=== PATIENT | female | born 1955 | race Caucasian/White ===

== ENCOUNTER 2022-11-30 14:50 | Inpatient (IN) | payer MEDICARE, OTHER ==
[~2022-11-30] VITALS: Ht 170.2 cm; Wt 70.3 kg
[2022-11-30 15:30] LABS: BASOPHILS ABSOLUTE AUTO 0.06 K/mm3 (0.00-0.23); BASOPHILS PERCENT AUTO 1 % (0-2); EOSINOPHILS ABSOLUTE AUTO 0.01 K/mm3 (0.00-0.68); EOSINOPHILS PERCENT AUTO 0 % (0-6); Hematocrit 43.1 % (33.0-51.0); IMMATURE GRAN ABSOLUTE AUTO 0.01 K/mm3 (0.00-0.10); IMMATURE GRAN PERCENT AUTO 0 % (0-1); LYMPHOCYTES ABSOLUTE AUTO 1.37 K/mm3 (0.84-5.20); LYMPHOCYTES PERCENT AUTO 22 % (21-46); MONOCYTES ABSOLUTE AUTO 0.59 K/mm3 (0.16-1.47); MONOCYTES PERCENT AUTO 9 % (4-13); Mean Corpuscular HGB 35.2 pg (26.0-34.0); Mean Corpuscular HGB Conc 32.5 g/dL (31.5-36.5); Mean Corpuscular Volume 108 fL (80-100); Mean Platelet Volume 9.3 fL (9.1-12.4); NEUTROPHILS ABSOLUTE AUTO 4.21 K/mm3 (1.96-9.15); NEUTROPHILS PERCENT AUTO 67 % (41-73); Platelet Count 94 K/mm3 (150-400); RDW Coefficient Variation 13.5 % (11.7-14.2); RDW Standard Deviation 54.8 fL (35.1-46.3); Red Blood Cell Count 3.98 M/mm3 (3.80-5.20); White Blood Cell Count 6.25 K/mm3 (4.00-11.30)
[2022-11-30 15:38] LABS: Base Excess Venous -6.7 mmol/L; Bicarbonate Venous 18.9 mmol/L (24.0-30.0); PCO2 Venous 45.8 mmHg (38-42)
[2022-11-30 15:39] LABS: pH Blood Venous 7.26 (7.34-7.37)
[2022-11-30 15:43] LABS: Influenza A, PCR NEGATIVE (NEGATIVE); Influenza B, PCR NEGATIVE (NEGATIVE); Resp Syncytial Virus, PCR NEGATIVE (NEGATIVE); SARS-Cov-2 (COVID-19) PCR, MMC NEGATIVE (NEGATIVE)
[2022-11-30 15:58] LABS: Alanine Aminotransfer (ALT/SGP 54 U/L (12-78); Alk Phos 63 U/L (50-136); Anion Gap 8 mmol/L (6-16); Aspartate Aminotrans (AST/SGOT 57 U/L (12-37); Blood Urea Nitrogen 9 mg/dL (8-24); Bun/Creatinine Ratio 20.3 (12.0-20.0); CO2, Blood 21 mmol/L (21-32); Calcium, Blood 8.7 mg/dL (8.5-10.1); Chloride, Blood 104 mmol/L (98-108); Creatinine, Blood 0.44 mg/dL (0.40-1.00); Ethanol (Alcohol), Blood, Med <3 mg/dL; Globulin, Blood 3.9 g/dL (2.2-4.0); Glomerular Filtration Rate 107 (60-); Glucose, Blood 248 mg/dL (70-99); Potassium, Blood 4.7 mmol/L (3.5-5.5); Sodium, Blood 133 mmol/L (136-145); Total Protein, Blood 7.9 g/dL (6.4-8.2)
--- NOTE | 2022-11-30 21:17 | NUR ---
1800 LASIX DOSE HOSPITALIST ORDERED ADDITIONAL 40mg OF LASIX AFTER ARRIVING TO UNIT. PATIENT RECIEVED 40mg LASIX IN ER AT 1745. CALL PLACED TO RESIDENT REGARDING DOSE AND CLARIFICAITON. RESIDENT STATED TO HOLD 1800 DOSE PATIENT JUST RECIEVED IT.
[2022-11-30 21:53] LABS: Base Excess Venous 1.1 mmol/L; Bicarbonate Venous 25.1 mmol/L (24.0-30.0); PCO2 Venous 41.2 mmHg (38-42); pH Blood Venous 7.41 (7.34-7.37)
[2022-12-01 05:01] LABS: Bun/Creatinine Ratio 19.1 (12.0-20.0); Calcium, Blood 8.5 mg/dL (8.5-10.1); Creatinine, Blood 0.47 mg/dL (0.40-1.00); Magnesium, Blood 1.7 mg/dL (1.6-2.4); Potassium, Blood 3.5 mmol/L (3.5-5.5)
[2022-12-01 05:40] LABS: BASOPHILS PERCENT AUTO 0 % (0-2); EOSINOPHILS PERCENT AUTO 0 % (0-6); Hematocrit 36.5 % (33.0-51.0); Hemoglobin 12.5 g/dL (11.5-16.0); IMMATURE GRAN ABSOLUTE AUTO 0.02 K/mm3 (0.00-0.10); IMMATURE GRAN PERCENT AUTO 1 % (0-1); LYMPHOCYTES ABSOLUTE AUTO 0.27 K/mm3 (0.84-5.20); LYMPHOCYTES PERCENT AUTO 7 % (21-46); MONOCYTES PERCENT AUTO 5 % (4-13); Mean Corpuscular HGB 35.6 pg (26.0-34.0); Mean Corpuscular HGB Conc 34.2 g/dL (31.5-36.5); Mean Corpuscular Volume 104 fL (80-100); Mean Platelet Volume 9.4 fL (9.1-12.4); NEUTROPHILS ABSOLUTE AUTO 3.38 K/mm3 (1.96-9.15); NEUTROPHILS PERCENT AUTO 87 % (41-73); Platelet Count 86 K/mm3 (150-400); RDW Coefficient Variation 13.4 % (11.7-14.2); RDW Standard Deviation 50.9 fL (35.1-46.3); Red Blood Cell Count 3.51 M/mm3 (3.80-5.20); White Blood Cell Count 3.87 K/mm3 (4.00-11.30)
--- NOTE | 2022-12-01 06:25 | NUR ---
SHIFT SUMMARY PATIENT ALERT AND ORIENTED, ABLE TO MAKE NEEDS KNOWN. VSS, PATIENT ON BIPAP FOR MAJORITY OF NIGHT WHILE SLEEPING, PATIENT TOLERATING RA WHILE AWAKE WITH O2 SAT >92%. DENIES CHEST PAIN OR SOB. PATIENT STANDBY ASSIST TO BEDSIDE COMMODE WITH ADEQUATE OUTPUT. NO SIGNIFICANT CHANGES, WILL REPORT TO DAY SHIFT RN.
--- NOTE | 2022-12-01 12:00 | NUR ---
CARE ASSUMPTION This RN assumed care at 0700. patient is alert and oriented x4. patient left eye pupil is smaller than right and sluggish. patient stated she had "surgery" but doesnt remember what kind of surgery. Patient reports no pain, chest pain/pressure, or shortness of breath. patient is able to make needs known and uses call light appropritately. vital signs are stable and have remained stable. spo2 >90% on room air. tele sr. see shift assessment for further detials. Morning care has been done by patient that patient performed indepdently. Patient refused a bed bath/shower this AM. Plan of care is up to date. call light is within reach and bed is in lowest position.
--- NOTE | 2022-12-01 18:30 | NUR ---
SHIFT SUMMARY Patient neuro remains intact, and unchaged throughout the shift. patient reports no pain, chest pain/pressure or shortness of breath. vital signs remain stable, see vitals. patient is med status with tele. patient uses call light appropriately and is able to make needs known. no acute changes this shift. call light within reach and bed in lowest position. plan of care is up to date.
--- NOTE | 2022-12-01 22:11 | NUR ---
ASSUMPTION OF CARE/TRANSFER PATIENT ALERT AND ORIENTED, ABLE TO MAKE NEEDS KNOWN TO STAFF. ON RA WITH O2 SAT >90%. ALL OTHER VITALS STABLE. PATIENT AMBULATING INTO BATHROOM INDEPDENDENTLY. CALL PLACED TO MEDICAL FLOOR NURSE AND REPORT GIVEN. PATIENT TRANSFERRED TO [facility] WITH ALL BELONGINGS.
--- NOTE | 2022-12-02 01:13 | NUR ---
TRANSFER/UPDATE *LATE ENTRY* PT TRANSFER FROM PCU 6. VSS. ORIENTED TO RM 310. REPORTED UPPER ABD/MID CHEST DISCOMFORT, "LIKE ACID REFLUX" INFORMED LYNN Silvestre & HE ORDERED 40MG PEPCID BID & TO START MEDICATION THIS STACI. MEDICATED PT AND NO FURTHER REPORTS OF DISCOMFORT. CALL LIGHT IN REACH.
[2022-12-02 04:58] LABS: BASOPHILS ABSOLUTE AUTO 0.02 K/mm3 (0.00-0.23); BASOPHILS PERCENT AUTO 0 % (0-2); EOSINOPHILS ABSOLUTE AUTO 0.06 K/mm3 (0.00-0.68); EOSINOPHILS PERCENT AUTO 1 % (0-6); Hematocrit 37.5 % (33.0-51.0); Hemoglobin 12.6 g/dL (11.5-16.0); IMMATURE GRAN ABSOLUTE AUTO 0.02 K/mm3 (0.00-0.10); IMMATURE GRAN PERCENT AUTO 0 % (0-1); LYMPHOCYTES ABSOLUTE AUTO 1.39 K/mm3 (0.84-5.20); LYMPHOCYTES PERCENT AUTO 20 % (21-46); MONOCYTES ABSOLUTE AUTO 0.54 K/mm3 (0.16-1.47); MONOCYTES PERCENT AUTO 8 % (4-13); Mean Corpuscular HGB 35.2 pg (26.0-34.0); Mean Corpuscular HGB Conc 33.6 g/dL (31.5-36.5); Mean Corpuscular Volume 105 fL (80-100); Mean Platelet Volume 9.8 fL (9.1-12.4); NEUTROPHILS ABSOLUTE AUTO 4.97 K/mm3 (1.96-9.15); NEUTROPHILS PERCENT AUTO 71 % (41-73); Platelet Count 94 K/mm3 (150-400); RDW Coefficient Variation 13.5 % (11.7-14.2); RDW Standard Deviation 53.1 fL (35.1-46.3); Red Blood Cell Count 3.58 M/mm3 (3.80-5.20)
[2022-12-02 05:14] LABS: Bun/Creatinine Ratio 28.8 (12.0-20.0); Calcium, Blood 8.7 mg/dL (8.5-10.1); Creatinine, Blood 0.66 mg/dL (0.40-1.00); Potassium, Blood 3.1 mmol/L (3.5-5.5)
--- NOTE | 2022-12-02 07:21 | NUR ---
SHIFT SUMMARY AOX4. VSS. TELE NSR HR 80-90'S. REPORTS SHE ALWAYS FEELS "A LITTLE DYSPNIC" E/U RESP, SPO2 >90% ON RA, BS DIM IN BASES c FINE CRACKLES, HAS OCC COUGH. REPORTED DYSPNEA THIS AM, MEDICATED c NASAL SPRAY & BREATHING TX. REPORTED NAUSEA THIS AM, MEDICATED c ZOFRAN, NO FURTHER NAUSEA. REPORTED 10/10 SHARP CP THIS AM, INFORMED CHARGE NURSE ROSSANA VILLAVICENCIO ORDERD EKG, NO SIGNIFICANT CHANGES FROM PREVIOUS EKG. TELE SR @THIS TIME & VSS. PT UNSURE IF DISCOMFORT IS ACID REFLUX RELATED. ASSESSED CIWA UPON ARRIVING TO FLOOR & GOT 2. CALL LIGHT IN REACH, WILL MONITOR.
--- NOTE | 2022-12-02 16:58 | NUR ---
SHIFT SUMMARY- PT IS ALERT AND ORIENTED X 4. UP AT BEDSIDE FOR BREAKFAST. PT REPORTS CHEST DISCOMFORT OF 2/10 AT 1000, BUT STATES THAT IT IS NOT NEARLY PAINFUL HER CHEST PAIN IN THE EARLY HOURS. INDEPENDENT IN THE ROOM. COURSE IN THE UPPER AND LOWER LOBES WITH EXPIRATORY WHEEZING. PT REPORTS NOT BEING ABLE TO SLEEP FOR PAST 2 NIGHTS. 13 BEAT RUN OF MD JOAO NOTIFIED. PT REPORTS 0/10 PAIN AT 1500
--- NOTE | 2022-12-03 04:10 | NUR ---
SHIFT SUMMARY ADMITTED FOR CHF (NEW)/RESPIRATORY FAILURE. FULL CODE. WE ARE DIURESING HER. WE ARE MONITORING LABS, MAY DC IF STABLE. TELEMETRY: NSR @ 88 BPM. FOLIC AND THIAMINE PIGGYBACK IV'S INFUSED. HX OF ETOH. CIWA OF 9, TREMORS NOTED. LIBRIUM GIVEN. SHE DID REQUEST RT TX AND ALBUTEROL FOR SOB, SHE STATES SHE HAS HX OF ASTHMA. SHE SEEMED ANXIOUS AT TIMES. SHE DID SEEM TO REST COMFORTABLY FOLLOWING LIBRIUM. HER LAST DRINK WAS November. SHE IS INDEPENDENT IN ROOM. A&O X3-4. BRIGHT LIGHT BOTHERS HER EYES.
[2022-12-03 05:15] LABS: BASOPHILS ABSOLUTE AUTO 0.04 K/mm3 (0.00-0.23); BASOPHILS PERCENT AUTO 1 % (0-2); EOSINOPHILS PERCENT AUTO 3 % (0-6); Hematocrit 38.8 % (33.0-51.0); Hemoglobin 12.8 g/dL (11.5-16.0); IMMATURE GRAN ABSOLUTE AUTO 0.01 K/mm3 (0.00-0.10); IMMATURE GRAN PERCENT AUTO 0 % (0-1); LYMPHOCYTES ABSOLUTE AUTO 1.28 K/mm3 (0.84-5.20); LYMPHOCYTES PERCENT AUTO 32 % (21-46); MONOCYTES ABSOLUTE AUTO 0.62 K/mm3 (0.16-1.47); MONOCYTES PERCENT AUTO 15 % (4-13); Mean Corpuscular HGB 34.9 pg (26.0-34.0); Mean Corpuscular Volume 106 fL (80-100); Mean Platelet Volume 9.5 fL (9.1-12.4); NEUTROPHILS ABSOLUTE AUTO 1.99 K/mm3 (1.96-9.15); NEUTROPHILS PERCENT AUTO 49 % (41-73); Platelet Count 104 K/mm3 (150-400); RDW Coefficient Variation 13.4 % (11.7-14.2); RDW Standard Deviation 53.2 fL (35.1-46.3); Red Blood Cell Count 3.67 M/mm3 (3.80-5.20); White Blood Cell Count 4.04 K/mm3 (4.00-11.30)
[2022-12-03 06:26] LABS: Albumin, Blood 3.4 g/dL (3.4-5.0); Bilirubin, Total 0.6 mg/dL (0.1-1.0); Bun/Creatinine Ratio 28.2 (12.0-20.0); Calcium, Blood 8.9 mg/dL (8.5-10.1); Creatinine, Blood 0.64 mg/dL (0.40-1.00); Globulin, Blood 3.4 g/dL (2.2-4.0); Potassium, Blood 3.5 mmol/L (3.5-5.5); Total Protein, Blood 6.8 g/dL (6.4-8.2)
[2022-12-03] MEDS ORDERED: CLOP75 PO (11:36)
[2022-12-03] MEDS ORDERED: ALBU90OI INH (11:36)
[2022-12-03] MEDS ORDERED: FAMO40 PO (11:37)
[2022-12-03] MEDS ORDERED: JARDIANCE10 MG PO (11:37)
[2022-12-03] MEDS ORDERED: FURO40 PO (11:38)
[2022-12-03] MEDS ORDERED: IPRAT-ALBUT 0.5-3 ML INH (11:38)
[2022-12-03] MEDS ORDERED: Flonase 0.05% N16 GM (11:38)
[2022-12-03] MEDS ORDERED: MELA3 PO (11:39)
[2022-12-03] MEDS ORDERED: METO25ER PO (11:39)
[2022-12-03] MEDS ORDERED: ALBU2.5V5 INH (11:40)
--- NOTE | 2022-12-03 15:03 | NUR ---
DISCHARGE NOTE PT DISCHARGED TO HOME, PICKED UP BY HER ROOM MATE. DISCHARGE EDUCATION AND INFORMATION PROVIDED. IV REMOVED SUCCESSFULLY. TELE REMOVED AND SENT BACK. MEDICATIONS FAXED TO THE PHARMACY OF HER CHOICE.
== END 2022-12-03 14:20 | disposition home or self-care (01) | DRG 291 ==
LOC: ER 14:50 → MEDS 18:27 → PCU 18:27 → MEDS 12-01 21:34
PROVIDERS: Family Medicine; Nurse Practitioner Acute Care; Physician Assistant; ADMIT Internal Medicine
PROC: 5A09357 Assistance with Respiratory Ventilation, Less than 24 Consecutive Hours, Continuous Positive Airway Pressure (ICD-10-PCS; principal; 2022-11-30)
DX: I50.43 Acute on chronic combined systolic (congestive) and diastolic (congestive) heart failure (principal); J96.01 Acute respiratory failure with hypoxia; E87.1 Hypo-osmolality and hyponatremia; E87.20 Acidosis, unspecified; F10.20 Alcohol dependence, uncomplicated; J44.9 Chronic obstructive pulmonary disease, unspecified; I25.10 Atherosclerotic heart disease of native coronary artery without angina pectoris; E87.6 Hypokalemia; H10.029 Other mucopurulent conjunctivitis, unspecified eye; D69.6 Thrombocytopenia, unspecified; Z20.822 Contact with and (suspected) exposure to COVID-19; F17.210 Nicotine dependence, cigarettes, uncomplicated; Z95.5 Presence of coronary angioplasty implant and graft; I25.2 Old myocardial infarction; Z71.6 Tobacco abuse counseling; Z91.148 Patient's other noncompliance with medication regimen for other reason; Z88.8 Allergy status to other drugs, medicaments and biological substances; Z88.5 Allergy status to narcotic agent; Z79.02 Long term (current) use of antithrombotics/antiplatelets; Z79.899 Other long term (current) drug therapy; Z71.41 Alcohol abuse counseling and surveillance of alcoholic
CPT/HCPCS: 0241U; 36415; 71046; 80048; 80053; 82803; 83735; 83880; 84443; 84484; 85025; 93005; 93010; 93306; 94640; 94644; 94660; 94664; 94760; 94762; 96374; 96375; 99285-25; A9270; G0480; J1650; J1940; J2060; J2405; J2930; J3411; J7050

== ENCOUNTER 2023-05-30 12:47 | Inpatient (IN) | payer MEDICARE, OTHER ==
[~2023-05-30] VITALS: Ht 157.5 cm; Wt 63.9 kg
[~2023-05-30 12:47] MED LIST: ALBU2.5V5 INH; ALBU90OI INH; CLOP75 PO; FAMO40 PO; FURO40 PO; Flonase 0.05% N16 GM; IPRAT-ALBUT 0.5-3 ML INH; JARDIANCE10 MG PO; MELA3 PO; METO25ER PO
[2023-05-30 13:46] LABS: BASOPHILS ABSOLUTE AUTO 0.07 K/mm3 (0.00-0.23); BASOPHILS PERCENT AUTO 1 % (0-2); EOSINOPHILS ABSOLUTE AUTO 0.05 K/mm3 (0.00-0.68); EOSINOPHILS PERCENT AUTO 1 % (0-6); Hematocrit 42.5 % (33.0-51.0); Hemoglobin 14.1 g/dL (11.5-16.0); IMMATURE GRAN ABSOLUTE AUTO 0.08 K/mm3 (0.00-0.10); IMMATURE GRAN PERCENT AUTO 2 % (0-1); LYMPHOCYTES ABSOLUTE AUTO 1.24 K/mm3 (0.84-5.20); LYMPHOCYTES PERCENT AUTO 25 % (21-46); MONOCYTES PERCENT AUTO 12 % (4-13); Mean Corpuscular HGB 35.3 pg (26.0-34.0); Mean Corpuscular HGB Conc 33.2 g/dL (31.5-36.5); Mean Corpuscular Volume 106 fL (80-100); NEUTROPHILS ABSOLUTE AUTO 3.03 K/mm3 (1.96-9.15); NEUTROPHILS PERCENT AUTO 60 % (41-73); NRBC ABSOLUTE 0.02 K/mm3 (0.00-0.02); NRBC Auto 0.4 /100 WBC (0.0-0.2); Platelet Count 110 K/mm3 (150-400); RDW Coefficient Variation 13.8 % (11.7-14.2); RDW Standard Deviation 54.5 fL (35.1-46.3); White Blood Cell Count 5.07 K/mm3 (4.00-11.30)
[2023-05-30 14:06] LABS: Albumin, Blood 3.5 g/dL (3.4-5.0); Albumin/Globulin Ratio 0.9 (0.8-1.8); Bilirubin, Total 0.7 mg/dL (0.1-1.0); Calcium, Blood 9.3 mg/dL (8.5-10.1); Creatinine, Blood 0.5 mg/dL (0.40-1.00); Globulin, Blood 4.1 g/dL (2.2-4.0); Potassium, Blood 3.8 mmol/L (3.5-5.5); Total Protein, Blood 7.6 g/dL (6.4-8.2)
[2023-05-30 16:35] VITALS: BP 134/95
--- NOTE | 2023-05-30 19:10 | NUR ---
ADMIT NOTE NEW ADMIT TO UNIT FROM ER FOR CP, NSTEMI. ALERT, ORIENTED, PLEASANT, COOPERATIVE. SBA TO TRANSFER FROM RNEY TO BED. 4-6L VIA NC TO KEEP SATS ABOVE 92%. DESATS WITH EXERTION AND EATING INTO HIGH 80'S. TELE SR-ST WITH PVC'S. OTHER VSS. LS COARSE THROUGHOUT WITH DIM BASES. TOLERATED CARDIAC DIET AND LIQUIDS. VOIDING WELL. PLAN FOR NPO AFTER MIDNIGHT FOR STRESS TEST IN AM. REPORT GIVEN TO COAL YARD SUPERVISOR RN.
--- NOTE | 2023-05-31 01:53 | NUR ---
SHIFT SUMMARY: OVERALL PATIENT HAS BEEN A/O X 3-4 HOWEVER, DID PULL OUT OWN IV ON ACCIDENT. DID NOT ORIGINALLY TELL RN WHEN ASKED ABOUT CHEST PAIN THAT SHE HAD BEEN EXPERIENCING CHEST PAIN FROM LEFT TO RIGHT CHEST AND RADIATING INTO BOTH SHOULDERS. PATIENT ALSO ON 6L VIA NC TO MAINTAIN >92%. SHE OFTEN IS FORGETFUL AND LEAVES IT OUTSIDE OF HER NARES, WHERE SHE DESATURATES. PATIENT NEEDED AN ADDITIONAL DOSE OF NITRO ~2109, PATCH REMOVED AT 2199. VITALS HAVE BEEN SLIGHTLY HYPERTENSIVE WHEN AWAKE, DURING REST UNDER 140 SYS, MOST OF THE TIME. PATIENT HAS BEEN COOPERATIVE WITH CARE, EXTREMELY BIG PINE RESERVATION. NEEDS REDIRECTION SOME OF THE TIME. BED ALARM ON FOR SAFETY AND SCD'S IN PLACE. NPO SINCE 0000, FOR STRESS TEST. NO MORPHINE, NITRO SINCE 2199 OR CCB FROM THIS RN AT THIS TIME. DENIES CHEST PAIN CURRENTLY, IMPROVED WITH TYLENOL MORE THAN THE NITRO.
[2023-05-31 04:22] LABS: Anion Gap 7 mmol/L (6-16); Blood Urea Nitrogen 9 mg/dL (8-24); Bun/Creatinine Ratio 17.2 (12.0-20.0); CHOL/HDL RATIO 3.9; CO2, Blood 22 mmol/L (21-32); Calcium, Blood 8.5 mg/dL (8.5-10.1); Chloride, Blood 109 mmol/L (98-108); Cholesterol 135 mg/dL (50-200); Creatinine, Blood 0.52 mg/dL (0.40-1.00); Glomerular Filtration Rate 102 (60-); Glucose, Blood 88 mg/dL (70-99); HDL Cholesterol 35 mg/dL (>39); LDL/HDL RATIO 2.1; Low Density Lipoprotein Chol 73 mg/dL (0-110); Potassium, Blood 3.9 mmol/L (3.5-5.5); Sodium, Blood 138 mmol/L (136-145); Triglycerides 134 mg/dL (30-160); Very Low Density Lipoprot Chol 26 mg/dL (6-32)
[2023-05-31 07:37] VITALS: BP 130/85
[2023-05-31 10:33] LABS: Adenovirus Not Detected (NOT DETECT); Bordetella pertussis Not Detected (NOT DETECT); Chlamydophila pneumoniae Not Detected (NOT DETECT); Coronavirus 229E Not Detected (NOT DETECT); Coronavirus HKU1 Not Detected (NOT DETECT); Coronavirus NL63 Not Detected (NOT DETECT); Coronavirus OC43 Not Detected (NOT DETECT); Human Metapneumovirus Not Detected (NOT DETECT); Human Rhinovirus/Enterovirus Not Detected (NOT DETECT); Influenza A/2009-H1 Not Detected (NOT DETECT); Influenza A/H1 Not Detected (NOT DETECT); Influenza A/H3 Not Detected (NOT DETECT); Influenza B Not Detected (NOT DETECT); Mycoplasma pneumoniae Not Detected (NOT DETECT); Parainfluenza Virus 1 Not Detected (NOT DETECT); Parainfluenza Virus 2 Not Detected (NOT DETECT); Parainfluenza Virus 3 Not Detected (NOT DETECT); Parainfluenza Virus 4 Not Detected (NOT DETECT); Respiratory Syncytial Virus Not Detected (NOT DETECT); SARS-Cov-2 (COVID-19), BioFire Not Detected (NOT DETECT)
[2023-05-31 12:12] VITALS: BP 116/78
[2023-05-31 15:00] VITALS: BP 100/54
--- NOTE | 2023-05-31 15:55 | NUR ---
SHIFT SUMMARY PT REMAINS ALERT AND ORIENTED, WITH SOME FORGETFULLNESS AT TIMES. BP STABLE. HR REMAINS NSR. PT DID HAVE A RUN OF VTACH, BUT WAS ASYMPTOMATIC. PT HAS BEEN ON 5L OXYMASK ALL SHIFT AND DOES DESATURATE QUICKLY WHEN TAKING OFF MASK. PT TAKES MINUTES TO RECOVER. LS DIMINISHED THROUGHOUT. PT COMPLAINS OF CHEST PRESSURE AT TIMES THAT IS AROUND A 3/10. PT ABLE TO TRANSFER TO BS WITH 1 ASSIST TO VOID. SECOND PORTION OF STRESS TEST DONE THIS AFTERNOON. REPORT GIVEN TO THOMAS SHAW TO ASSUME CARE
[2023-05-31 20:14] VITALS: BP 114/78
[2023-05-31 21:27] VITALS: BP 111/78
[2023-05-31 23:17] VITALS: BP 109/73
--- NOTE | 2023-05-31 23:50 | NUR ---
ASSUMPTION OF CARE ASSUMED CARE AT APPROX 1900. PT AOX4, CAN BE FORGETFUL AT TIMES. PT IS PLEASANT, COOPERATIVE W/ CARE. ABLE TO COMMUNICATE NEEDS PRN. VSS. BP STABLE. TELEMETRY SHOWING SR/STACH 90'S-100'S. AT 2124, THIS RN NOTIFIED THAT THE PT EXPERIENCED AN 7 BEAT EPISODE OF VTACH. PT ASYMPTOMATIC OF EPISODE, WAS SLEEPING AT THE TIME. VSS. DID REPORT 3/10 CHEST PAIN RADIATING TO L ARM. MD MADE AWARE DURING UNIT ROUNDING. CONTINUING TO MONITOR. MAGNESIUM LEVEL TO BE ADDED TO TOMORROW MORNING LAB DRAWS. PT CURRENTLY ON 4-6L VIA MASK, WAS ON 6-9L PRIOR TO ASSUMPTION OF CARE, SATS >90%. DESATS QUICKLY W/ ACTIVITY, SATS IN THE 70'S. ABLE TO RETURN W/ REST. DYSPNEA W/ EXERTION. PT REPORTS GENERALIZED "ALL OVER" PAIN, MANAGING PER EMAR. NEW IV INSERTED THIS SHIFT. CALL LIGHT IN REACH.
[2023-06-01 02:42] VITALS: BP 126/87
[2023-06-01 03:54] LABS: BASOPHILS ABSOLUTE AUTO 0.06 K/mm3 (0.00-0.23); BASOPHILS PERCENT AUTO 1 % (0-2); EOSINOPHILS ABSOLUTE AUTO 0.08 K/mm3 (0.00-0.68); EOSINOPHILS PERCENT AUTO 2 % (0-6); Hematocrit 37.2 % (33.0-51.0); Hemoglobin 12.6 g/dL (11.5-16.0); IMMATURE GRAN PERCENT AUTO 2 % (0-1); LYMPHOCYTES ABSOLUTE AUTO 1.28 K/mm3 (0.84-5.20); LYMPHOCYTES PERCENT AUTO 25 % (21-46); MONOCYTES ABSOLUTE AUTO 0.58 K/mm3 (0.16-1.47); MONOCYTES PERCENT AUTO 11 % (4-13); Mean Corpuscular HGB 35.5 pg (26.0-34.0); Mean Corpuscular HGB Conc 33.9 g/dL (31.5-36.5); Mean Corpuscular Volume 105 fL (80-100); Mean Platelet Volume 10.4 fL (9.1-12.4); NEUTROPHILS ABSOLUTE AUTO 3.06 K/mm3 (1.96-9.15); NEUTROPHILS PERCENT AUTO 59 % (41-73); Platelet Count 104 K/mm3 (150-400); RDW Coefficient Variation 13.9 % (11.7-14.2); RDW Standard Deviation 53.4 fL (35.1-46.3); Red Blood Cell Count 3.55 M/mm3 (3.80-5.20); White Blood Cell Count 5.16 K/mm3 (4.00-11.30)
[2023-06-01 04:11] LABS: Bun/Creatinine Ratio 21.7 (12.0-20.0); Calcium, Blood 8.9 mg/dL (8.5-10.1); Creatinine, Blood 0.55 mg/dL (0.40-1.00); Magnesium, Blood 1.5 mg/dL (1.6-2.4); Potassium, Blood 3.5 mmol/L (3.5-5.5)
--- NOTE | 2023-06-01 04:18 | NUR ---
SHIFT SUMMARY NO ACUTE CHANGES SINCE ASSUMPTION OF CARE. PT HAS BEEN AOX3-4 W/ SOME FORGETFULNESS AT TIMES. PT IS A POOR HISTORIAN. BP STABLE. TELEMETRY STILL SHOWING NSR. NO FURTHER RUNS OF VTACH. PT REPORTING 3/10 CHEST PAIN AND PRESSURE INFREQUENTLY. PT CURRENTLY ON 6L VIA OXYMASK. DESATS QUICKLY WHEN TAKING OFF MASK OR W/ MOBILITY. AT TIMES, PT REQUIRES REMINDING TO PUT OXYMASK BACK ON. PT REPORTING GENERALIZED "ALL OVER" PAIN THROUGHOUT SHIFT, MANAGING PER EMAR. PT UP OUT OF BED 1P ASSIST. VOIDING. BM THIS SHIFT. PT IS CURRENTLY RESTING IN ROOM, NO SIGNS OF DISTRESS NOTED. CALL LIGHT IN REACH. WILL REPORT TO ONCOMING RN.
[2023-06-01 07:48] VITALS: BP 116/63
[2023-06-01 12:01] VITALS: BP 116/79
[2023-06-01 16:24] VITALS: BP 102/69
--- NOTE | 2023-06-01 17:56 | NUR ---
SHIFT SUMMARY; ASSUMED CARE AT 0700, A/A/OX3 WITH AT TIMES SLIGHTLY FORGETFUL. 11L 02 HIGH FLOW WHEN EATING, O2 MASK AT 11L WHEN NOT EATING. PROVIDER DISCUSSED WITH RT TITRATING 02 DOWN TODAY, DESATS TO LOW 80'S WITH EXERTION. UP TO BEDSIDE COMMODE WITH ASSISTANCE. MEDICATED PER ORDERS T/O SHIFT, NO ACUTE CHANGES, WILL CONTINUE TO MONITOR AND TREAT UNTIL CHANGE OF SHIFT.
[2023-06-01 20:53] VITALS: BP 120/88
[2023-06-01 23:34] VITALS: BP 132/79
[2023-06-02 04:06] LABS: BASOPHILS ABSOLUTE AUTO 0.05 K/mm3 (0.00-0.23); BASOPHILS PERCENT AUTO 1 % (0-2); EOSINOPHILS ABSOLUTE AUTO 0.09 K/mm3 (0.00-0.68); EOSINOPHILS PERCENT AUTO 2 % (0-6); Hematocrit 37.5 % (33.0-51.0); Hemoglobin 12.5 g/dL (11.5-16.0); IMMATURE GRAN ABSOLUTE AUTO 0.11 K/mm3 (0.00-0.10); IMMATURE GRAN PERCENT AUTO 2 % (0-1); LYMPHOCYTES ABSOLUTE AUTO 1.12 K/mm3 (0.84-5.20); LYMPHOCYTES PERCENT AUTO 20 % (21-46); MONOCYTES ABSOLUTE AUTO 0.55 K/mm3 (0.16-1.47); MONOCYTES PERCENT AUTO 10 % (4-13); Mean Corpuscular HGB 35.3 pg (26.0-34.0); Mean Corpuscular HGB Conc 33.3 g/dL (31.5-36.5); Mean Corpuscular Volume 106 fL (80-100); Mean Platelet Volume 10.6 fL (9.1-12.4); NEUTROPHILS ABSOLUTE AUTO 3.62 K/mm3 (1.96-9.15); NEUTROPHILS PERCENT AUTO 65 % (41-73); Platelet Count 105 K/mm3 (150-400); RDW Coefficient Variation 14.1 % (11.7-14.2); RDW Standard Deviation 54.8 fL (35.1-46.3); Red Blood Cell Count 3.54 M/mm3 (3.80-5.20); White Blood Cell Count 5.54 K/mm3 (4.00-11.30)
[2023-06-02 04:08] VITALS: BP 102/68
[2023-06-02 04:46] LABS: Bun/Creatinine Ratio 24.3 (12.0-20.0); Calcium, Blood 9.2 mg/dL (8.5-10.1); Creatinine, Blood 0.49 mg/dL (0.40-1.00); Potassium, Blood 4.3 mmol/L (3.5-5.5)
--- NOTE | 2023-06-02 07:14 | NUR ---
SHIFT SUMMARY A/Ox3-4 AND COOPERATIVE WITH CARE. ANSWERS QUESTIONS APPROPRIATELY AND ABLE TO MAKE HER NEEDS KNOWN. NO ACUTE EVENTS OVERNIGHT FOR PT WAS ABLE TO SLEEP T/O MOST OF THE SHIFT. CARDIAC, REMAINS IN SR-ST 90-100'S WITH NO C/O CP OR PRESSURE T/O THE NIGHT. SBP HAS BEEN STABLE RANGING 100-130'S. RESPIRATORY, MAINTAINS SPO2 RANGING 88-93% ON 10-11L VIA O2 MASK. CONTINUES TO QUICKLY DESAT INTO THE MID 80'S WITH AMBULATION AND TAKES 1-2 MINUTES TO RECOVER. NOTED TO FREQUENTLY TAKE OF O2 MASK AND NEEDED TO BE REMINDED TO KEEP O2 ON. /, ABLE TO AMBULATE TO BSC WITH 1 STAFF ASSIST. VOIDING ONEL COLORED URINE. NO BM FOR THIS SHIFT. ASSESSED PT FOR RISKS OF ANY IGNITION SOURCES WELL BEHAVIORS FOR INCREASED RISKS OF FIRE DANGER. PT EDUCATED ON COMMON SOURCES OF IGNITION WELL NEED TO KEEP A SAFE ENVIRONMENT. PT VOICED UNDERSTANDING. NO NEW ORDERS AT THIS TIME, WILL REPORT TO ONCOMING RN. ZECHARIAH ZAFAR OF THIS NOTE.
[2023-06-02 07:43] VITALS: BP 113/93
[2023-06-02 11:28] VITALS: BP 92/71
--- NOTE | 2023-06-02 13:34 | NUR ---
Upon receiving a referral for spiritual care, I visited the patient. She is sitting on a chair and alert, though slightly confused. She is clear that she is in the hospital and that she has several issues but is not clear on what they are or the exact plan of care. She has two dtr's but they are in [place] and [place] and Varun (an old friend) locally how helps her sometimes. She welcomes prayer and so I gladly suppy prayer. Patient showed signs of being encouraged by the conversation and invites me to come back again. I will continue to remain available.
[2023-06-02 16:17] LABS: Base Excess Venous 3.8 mmol/L; Bicarbonate Venous 25.3 mmol/L (24.0-30.0); PCO2 Venous 48.7 mmHg (38-42); pH Blood Venous 7.38 (7.34-7.37)
[2023-06-02 16:42] VITALS: BP 119/78
--- NOTE | 2023-06-02 18:15 | NUR ---
SHIFT SUMMARY; ASSUMED CARE AT 0700. A/A/OX2. 11L 02 VIA MASK ON ARRIVAL. DESATS QUICKLY WITH MOVEMENT TO LOW 80'S HIGH 70'S. RECOVERS TO LOW 90'S IN APPROX 5 MINS. APPEARS CONFUSED AT TIMES AND DIFFICULT TO DIRECT. APPEARS MORE CONFUSED FROM PREVIOUS DAY. TELEPHONE CALL TO DR. GAONA TO DISCUSS. ADDITIONAL MEDS ORDERED, CHEST XRAY COMPLETE, CARDIAC CONSULT TODAY COMPLETED. RT TO ROOM MULTIPLE TIMES FOR BREATHING TREATMENTS. PT PULLING 02 CANNULA OFF FREQUENTLY DURING SHIFT, REDIRECTED TO LEAVE ON. 02 DEMANDS INCREASED IN LATE AFTERNOON. VBG COMPLETED, STARTED ON AIRVO PER ORDERS BY RT 35% FIO2 70L TO MAINTAIN SATS OF LOW 90'S. INCREASINGLY CONFUSED DAY PROGRESSED. REPEATS QUESTIONS, ASKS TO TAKE OXYGEN OFF, BUT IS ABLE TO REDIRECT. WILL CONTINUE TO MONITOR AND TREAT UNTIL CHANGE OF SHIFT.
[2023-06-02 20:02] VITALS: BP 133/82
[2023-06-02 23:37] VITALS: BP 115/77
[2023-06-03] VITALS (13 sets, daily range): BP systolic 105–131; BP diastolic 76–99
--- NOTE | 2023-06-03 06:45 | NUR ---
SHIFT SUMMARY A/Ox2-4 AND MOSTLY COOPERATIVE WITH CARE. CONTINUES TO DEMONSTRATE INTERMITTENT CONFUSION WELL IMPULSIVENESS. PT FREQUENTLY WOULD ATTEMPT TO PULL OFF ARIVO WELL PULL AT NECESSARY CORDS/IV'S. 1:1 SITTER UTILIZED T/O THE NIGHT TO HELP PROMOTE PT SAFETY. CARDIAC, REMAINS IN SR-ST RANGING 90-100 S WITH NO COMPLAINTS OF CP OR PRESSURE T/O THE NIGHT. SBP HAS BEEN STABLE AVERAGING 110-130'S. RESPIRATORY, MAINTAINS SPO2 88-92% ON AIRVO 30L W/ 75% FiO2. DENIES SOB WHILE AT REST. DYSPNEA NOTED WITH MINIMAL EXERTION FOR PT QUICKLY DESATS IN THE MID 80'S. OFTEN TAKES 2-3 MINUTES TO RECOVER. GI/, PURWICK IN PLACE DRAINING ONEL-YELLOW COLORED URINE TO SUCTION. NO BM FOR THIS SHIFT. PT CONTINUES TO ENDORSE GENERAL FATIGUE WITH INCREASED O2 DEMAND WITH AMBULATION. FAMILY CALLED AND UPDATED ON PT'S CONDITION. ASSESSED PT FOR RISKS OF ANY IGNITION SOURCES WELL BEHAVIORS FOR INCREASED RISKS OF FIRE DANGER. PT EDUCATED ON COMMON SOURCES OF IGNITION WELL NEED TO KEEP A SAFE ENVIRONMENT. PT VOICED UNDERSTANDING. NO NEW ORDERS AT THIS TIME, WILL REPORT TO ONCOMING RN. ZECHARIAH ZAFAR OF THIS NOTE.
[2023-06-03 14:54] LABS: Bun/Creatinine Ratio 20.9 (12.0-20.0); Calcium, Blood 9.2 mg/dL (8.5-10.1); Creatinine, Blood 0.72 mg/dL (0.40-1.00); Potassium, Blood 3.9 mmol/L (3.5-5.5)
--- NOTE | 2023-06-03 15:26 | NUR ---
SHIFT SUMMARY; ASSUMED CARE AT 0700. AIRVO WORN T/O NOC AND SITTER AT BEDSIDE. WHEN AWOKEN APPEARS CONFUSED BUT IS ABLE TO ANSWER BASIC QUESTIONS. L/S DIM T/O. MOVES AROUND ON GURNEY FREQUENTLY AND UNABLE TO HOLD STILL. REDIRECTED CONTINUOUSLY BY SITTER. DR. BROWN IN FOR CONSULT. 02 INCREASED TO 85% FIO2 50L. SATS IN LOW 90'S. INCREASINGLY ADJITATED IN AFTERNOON, REPEATING QUESTIONS AND DIFFICULTY TO DIRECT. STATES CANNOT BREATH MULTIPLE TIMES, SATS REMAINED IN LOW 90'S. RT TO ROOM, FIO2 INCREASED TO 90%. ORDERS TO MOVE TO ICU, REPORT GIVEN TO RAKESH RN, TAKEN TO ICU ON AIRVO WITH RT AND DOUGH BRAKE MACHINE OPERATOR.
--- NOTE | 2023-06-03 16:21 | NUR ---
ASSUMPTION OF CARE PT TX FROM PCU TO ICU @ 1515, MOVED TO ICU BED VIA SLIDER SHEET. PT A&OX3, FOLLOWING COMMANDS, JONES. HAVE NOT INITIATED PRECEDEX YET, PT CALM CURRENTLY. INITIALLY ON HIFLOW NC, TRANSITIONED TO BIPAP-SETTINGS NOW: 07/08-90% c SATS >92%, LS DIM T/O. ST ON THE BILINGUAL LOAN PROCESSOR. BP WNL. PHYSICIANS IN ROOM CURRENTLY, WILL MONITOR CLOSELY.
--- NOTE | 2023-06-03 18:06 | NUR ---
PT TX TO MEDICAL ROOM 339.
--- NOTE | 2023-06-03 18:34 | NUR ---
SHIFT SUMMARY PT REMAINS A&OX3, FOLLOWING COMMANDS, COOPERATING WITH CARE. TOLERATING BIPAP AT THIS TIME, HAVE NOT STARTED PRECEDEX. BIPAP SETTINGS NOW-07/08 @ 60% c SATS >90%. PT USING BEDPAN, NO BM. NO OTHER ACUTE CHANGES.
--- NOTE | 2023-06-03 20:41 | NUR ---
ASSUMED CARE PT IS A&O X4; SLOW/SLURRED SPEECH; COMMUNICATES APPROPRIATELY. SPO2 >92% ON RA; MAP >65; NSR. PT WAS MOVED FROM CHAIR TO BED AT START OF SHIFT. SON AT BEDSIDE. PERRLA; EQUAL SERVICE SECRETARY STRENGTH BILATERALLY. LEFT LEG SHOWS REDNESS SLIGHTLY OUTSIDE OF DEMARCATED LINE (2-3CM)(REDRAWN W/ SHARPIE AROUND NEW REDNESS). PT DENIES CP, SOB, OR NAUSEA. RESTING QUIETLY WATCHING TV AT THIS TIME.
--- NOTE | 2023-06-03 20:48 | NUR ---
ASSUMED CARE PT IS A&O X2; WHEN ASKED WHERE SHE WAS PT STATED "[facility]". WHEN REMINDING PT SHE WAS IN THE HOSPITAL, PT STATED "OH YEA, NENA, I KNEW THAT.". PT IS COOPERATIVE W/ CARE AND PLEASANT. TOLERATING BIPAP WELL. SPO2 >92% ON BIPAP; MAP >65; NSR/ST 90-100'S. PT DENIES CP OR NAUSEA. PT DID NOT TOLERATE SHORT BREAK FROM BIPAP FOR MEDS (HF NC 15L) AND DESATTED DOWN INTO THE 80'S; QUICKLY RECOVERED AFTER BIPAP WAS PUT BACK ON.
--- NOTE | 2023-06-03 21:47 | NUR ---
UPDATE PT COMPLAINING OF SHOULDER/SIDE PAIN AND INABILITY TO LIFT LEFT ARM. DR VILLAVICENCIO CALLED W/ ORDERS FOR LEFT SHOULDER 2V XRAY
--- NOTE | 2023-06-03 23:49 | NUR ---
UPDATE PT RESTING QUIETLY AND NO LONGER COMPLAINING OF LEFT SIDED PAIN. ABLE TO MOVE ARM AND HAS EQUAL CERT OCCUPATIONAL THERAPY ASST STRENGTH. STILL UNABLE TO LIFT ARM PAST SHOULDER. SHARAD.
[2023-06-04] VITALS (20 sets, daily range): BP systolic 79–128; BP diastolic 58–113
[2023-06-04 03:39] LABS: BASOPHILS ABSOLUTE AUTO 0.04 K/mm3 (0.00-0.23); BASOPHILS PERCENT AUTO 1 % (0-2); EOSINOPHILS ABSOLUTE AUTO 0.01 K/mm3 (0.00-0.68); EOSINOPHILS PERCENT AUTO 0 % (0-6); Hematocrit 41.6 % (33.0-51.0); Hemoglobin 14.3 g/dL (11.5-16.0); IMMATURE GRAN ABSOLUTE AUTO 0.11 K/mm3 (0.00-0.10); IMMATURE GRAN PERCENT AUTO 2 % (0-1); LYMPHOCYTES ABSOLUTE AUTO 0.74 K/mm3 (0.84-5.20); LYMPHOCYTES PERCENT AUTO 11 % (21-46); MONOCYTES ABSOLUTE AUTO 0.35 K/mm3 (0.16-1.47); MONOCYTES PERCENT AUTO 5 % (4-13); Mean Corpuscular HGB 35.7 pg (26.0-34.0); Mean Corpuscular HGB Conc 34.4 g/dL (31.5-36.5); Mean Corpuscular Volume 104 fL (80-100); NEUTROPHILS ABSOLUTE AUTO 5.33 K/mm3 (1.96-9.15); NEUTROPHILS PERCENT AUTO 81 % (41-73); NRBC ABSOLUTE 0.03 K/mm3 (0.00-0.02); NRBC Auto 0.5 /100 WBC (0.0-0.2); RDW Coefficient Variation 14.4 % (11.7-14.2); RDW Standard Deviation 54.3 fL (35.1-46.3); Red Blood Cell Count 4.01 M/mm3 (3.80-5.20); White Blood Cell Count 6.58 K/mm3 (4.00-11.30)
[2023-06-04 04:09] LABS: Bun/Creatinine Ratio 33.1 (12.0-20.0); Calcium, Blood 8.7 mg/dL (8.5-10.1); Creatinine, Blood 0.82 mg/dL (0.40-1.00); Platelet Count 69 K/mm3 (150-400); Potassium, Blood 4.1 mmol/L (3.5-5.5)
--- NOTE | 2023-06-04 05:30 | NUR ---
SHIFT SUMMARY PT VSS; HR INTERMITTENTLY IN THE 100'S. UNTIL RESTING QUIETLY STARTING 3 HOURS AGO; PT WOULD FREQUENTLY PULL BIPAP MASK DOWN EVEN W/ EDUCATION AND REORIENTATION. PT FOLLOWS DIRECTIONS WHILE IN ROOM, BUT QUICKLY FORGETS. NO OTHER ACUTE EVENTS OVERNIGHT.
[2023-06-04 09:43] LABS: PCO2 Arterial 36.5 mmHg (35-45); PO2 Arterial 54.3 mmHg (80-100)
--- NOTE | 2023-06-04 10:48 | NUR ---
Assumed care at 0700, bedside report received. Pt on Bipap 07/06, 60% Fi02. Pt Alert, oriented to self/surroundings/situation. As morning has progressed pt became more confused and required increasing oxygen support. Bipap settings increased to 07/08, 100%. Pt increasingly confused. ABG obtained and decision to intubate made. Pt intubated at approximately 1020, see RT notes. Pt condition not improved, sats in 60-70s. TPA administered. Family updated by Dr. Sosa, will continue to monitor.
[2023-06-04 10:49] LABS: Source, Urine Foley catheter
--- NOTE | 2023-06-04 11:17 | NUR ---
CARE OF PT ASSUMED SHORTLY PRIOR TO INTUBATION AT 0930. PT INTUBATED AT [address] BOBO. ETT 7.5 26 @TEETH. +AUSC, +COLOR CHANGE. OGT PLACED, POST CHEST XRAY OBTAINED AND RERAD BY DR BOBO. CABRERA CATH 16F TEMP PROBE PLACED W/ DIFF. UA SENT PER PROTOCOL. PICC TO BLANCA PLACED W/O DIFFICULTY. LEVOPHED STARTED AT 1MCG TO KEEP MAP >65. PROPOFOL AT 20MCG STRATED JUST AFTER INTUBATION FOR SEDATION/VENT RALF. ACTIVASE 50MG PUSH GIVEN OVER TWO MIN PER DR BOBO; PHARMACY PREPARED PUSH. FAMILY CALLED AND UPDATED BY DR BOBO.
[2023-06-04 11:48] LABS: Appearance, Urine Clear (Clear); Bilirubin, Urine Neg (Neg); Blood, Urine Neg (Neg); Color, Urine Yellow (P-Yellow); Glucose Qualitative, Urine Neg (Neg); Ketones, Urine Neg (Neg); Leukocyte Esterase, Urine Neg (Neg); Nitrite, Urine Neg (Neg); Protein, Urine Neg (Neg); Urobilinogen, Urine NORM (Normal)
--- NOTE | 2023-06-04 11:48 | NUR ---
SECOND DOSE OF ACTIVASE GIVEN PER DR BOBO. STAT EKG COMPLETED. SATS IN THE 30'S WITH GOOD PLETH. DR BOBO AT BEDSIDE. FAMILY ARE ON THE WAY.
--- NOTE | 2023-06-04 11:52 | NUR ---
VENT AC 18/400/100%/14. PADS ON PT, CODE CART AT BEDSIDE. CHILDREN'S BOOK AUTHOR AT BEDSIDE.
--- NOTE | 2023-06-04 12:00 | NUR ---
DR BOBO SPOKE W PT'S FAMILY, PT NOW DNR. PT IN PEA. WIDE COMPLEX QRS IN THE 50'S. PT REMAINS ON VENT. DR BOBO AT BEDSIDE.
--- NOTE | 2023-06-04 12:09 | NUR ---
TOD 1206. ABSENT HEART TONES PER MYSELF AND BRAEDEN SHAW. ASYSTOLE ON MONITOR. PT EXTUBATED PER DR BOBO. LEVOPHED DISCONNECTED.
--- NOTE | 2023-06-04 12:15 | NUR ---
FAMILY NOTIFIED OF PT'S PASSING AT [address] BOBO.
--- NOTE | 2023-06-04 12:56 | NUR ---
Patient is in rapid decline, then is extubeted and then expires at 1206. Patient's SO, Varun, arrives close to 1230. Varun is very tearful and distracted. Moving all over the room, holding the patient's head and crying, cussing and roaming the room. Between his outbursts I conducted a brief life review of patient and their relationship and provided grief support. Varun tells me, "it is all F up, I need to go to a bar and have a beer." I follow him out of ICU and give him directions to the exit. After a couple of minutes I step out od the ICU and Varun comes back up to me and states that he walked a big selawik in the hallways and tells me he can't get out. I then walk with him all the way to the exit doors while he continues to wave his arms around, stop and cry, hold on to me and sob and then tells me that he has to get out of this F place. I ask if we can work on alternate transportation or if he would like to just stop and take a pause and he waves his arms and walks into the parking lot.
--- NOTE | 2023-06-04 13:46 | NUR ---
PT TOD 1215, FAMILY NOTIFIED BY DR. BOBO. AWAITING FAMILY ARRIVAL TO TRANSFER PERSONAL POSSESSIONS.
== END 2023-06-04 12:06 ==
LOC: ER 12:47 → PCU 12:48 → ICUE 06-03 15:15
PROVIDERS: Emergency Medicine; Hospitalist; Internal Medicine Critical Care Medicine; ADMIT Internal Medicine
PROC: 5A1935Z Respiratory Ventilation, Less than 24 Consecutive Hours (ICD-10-PCS; principal; 2023-06-04)
PROC: 0BH17EZ Insertion of Endotracheal Airway into Trachea, Via Natural or Artificial Opening (ICD-10-PCS; 2023-06-04)
PROC: 5A0935A Assistance with Respiratory Ventilation, Less than 24 Consecutive Hours, High Flow/Velocity Cannula (ICD-10-PCS; 2023-06-04)
PROC: 0T9B70Z Drainage of Bladder with Drainage Device, Via Natural or Artificial Opening (ICD-10-PCS; 2023-06-04)
PROC: 4A033R1 Measurement of Arterial Saturation, Peripheral, Percutaneous Approach (ICD-10-PCS; 2023-06-04)
PROC: 3E033XZ Introduction of Vasopressor into Peripheral Vein, Percutaneous Approach (ICD-10-PCS; 2023-06-04)
PROC: 02HV33Z Insertion of Infusion Device into Superior Vena Cava, Percutaneous Approach (ICD-10-PCS; 2023-06-04)
PROC: 3E03317 Introduction of Other Thrombolytic into Peripheral Vein, Percutaneous Approach (ICD-10-PCS; 2023-06-04)
DX: I21.4 Non-ST elevation (NSTEMI) myocardial infarction (principal); I50.43 Acute on chronic combined systolic (congestive) and diastolic (congestive) heart failure; J18.9 Pneumonia, unspecified organism; J96.01 Acute respiratory failure with hypoxia; J44.1 Chronic obstructive pulmonary disease with (acute) exacerbation; J44.0 Chronic obstructive pulmonary disease with (acute) lower respiratory infection; R57.0 Cardiogenic shock; I27.20 Pulmonary hypertension, unspecified; I46.9 Cardiac arrest, cause unspecified; Z66 Do not resuscitate; I07.1 Rheumatic tricuspid insufficiency; D69.6 Thrombocytopenia, unspecified; I11.0 Hypertensive heart disease with heart failure; Z87.891 Personal history of nicotine dependence; F10.20 Alcohol dependence, uncomplicated; I25.10 Atherosclerotic heart disease of native coronary artery without angina pectoris; Z20.822 Contact with and (suspected) exposure to COVID-19; Y90.0 Blood alcohol level of less than 20 mg/100 ml; Z88.5 Allergy status to narcotic agent; Z88.8 Allergy status to other drugs, medicaments and biological substances; Z79.02 Long term (current) use of antithrombotics/antiplatelets; Z79.899 Other long term (current) drug therapy; Z79.51 Long term (current) use of inhaled steroids; I25.2 Old myocardial infarction; Z95.5 Presence of coronary angioplasty implant and graft
CPT/HCPCS: 0202U; 31500; 36415; 36600; 71045; 71046; 71250; 73030; 76705; 78452; 80048; 80053; 80061; 81003; 82140; 82803; 82947; 83036; 83735; 83880; 84484; 85025; 85379; 92610; 93005; 93010; 93017; 93306; 94002; 94640; 94660; 94664; 94760; 94762; 96365; 96372; 96374; 96375; 99285-25; A9270; A9500; C1751; G0378; J0280; J0696; J1644; J1885; J1940; J2371; J2405; J2543; J2704; J2785; J2930; J2997; J3360; J3475; J7050; J7060